=== PATIENT | female | born 1995 | race Two or more races ===

== ENCOUNTER 2018-02-21 11:30 | Outpatient (AMBR) | payer MEDICAID, SELFPAY ==
--- NOTE | 2018-02-13 13:21 | PT.ODAYNRPT ---
PT Outpatient Daily Note Date of Service: February 13, 2018 OP Daily Note Visit Reasons: back Outpatient Physical Therapy Treatment Date: 02/13/18 Subjective: pt reported some soreness from last visit. she felt a little better today. Objective: see flow sheet. Assessment: educated and demonstrated proper lifting mechanics using the box weight. pt attempted a few times until she understood the proper form. added wall squats to help with good posture as she squats. will continue to practice more lifting techniques. pt denied discomfort during and after lumbar traction. Plan: continue POC per PT. Length of Time (minutes) of Treatment: 30 Minutes Office Procedures PT Procedures PT Date of Service: 02/21/18 Therapeutic Exercise 15 minutes: Yes Manual Interactive Media Specialist 15 minutes: Yes PT Procedures PT Date of Service: 02/13/18 Traction Mechanical: Yes Therapeutic Exercise 15 minutes: Yes
--- NOTE | 2018-02-21 12:15 | PT.ODAYNRPT ---
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
--- NOTE | 2018-02-21 12:18 | PTNOTE_ITS ---
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
== END 2018-03-10 23:59 | disposition home or self-care (01) ==
PROVIDERS: PCP Physician Assistant; Referring Provider Physician Assistant; Visit Provider Family Medicine
DX: M54.5 Low back pain (principal)
CPT/HCPCS: 97012; 97110; 97140

== ENCOUNTER 2024-10-02 23:11 | Emergency (ER) | payer MEDICAID, SELFPAY ==
[2024-10-02 23:11] VITALS: BMI 17.4
[2024-10-02 23:27] VITALS: BP 110/70; PULSE 127; RESP 18; TEMP 39.1; O2SAT 97
--- NOTE | 2024-10-02 23:33 | PD.EDURI ---
Upper Respiratory Inf. RME/HPI General Chief Complaint: Dental/Oral/Throat Stated Complaint: Sore throat Time Seen by Provider: 10/02/24 23:32 Arrival date/time: 10/02/24 23:11 28F with no significant PMH presents to ED with several days of sore throat. Patient denies cough. Limitations: no limitations Related Data Previous Rx's ?Medication ?Instructions ?Recorded amoxicillin 875 mg-potassium 1 tab PO BID 7 days #14 tabs 10/03/24 clavulanate 125 mg tablet Allergies Allergy/AdvReac Type Severity Reaction Status Date / Time No Known Allergies Allergy Verified 07/27/22 08:27 Review of Systems Review of Systems Systems Reviewed: All systems reviewed, normal except as documented Constitutional Constitutional: Reports system reviewed and no additional complaints, except as documented, Denies fever(s) and Denies headache(s) ENT Ears, Nose, Mouth, and Throat: Reports as per HPI, Denies disequilibrium, Denies headache(s) and Reports sore throat Cardiovascular Cardiovascular: Reports system reviewed and no additional complaints, except as documented, Denies chest pain and Denies dyspnea Respiratory Respiratory: Reports system reviewed and no additional complaints, except as documented, Denies cough and Denies dyspnea Gastrointestinal Gastrointestinal: Reports system reviewed and no additional complaints, except as documented, Denies abdominal pain, Denies nausea and Denies vomiting Neurologic Neurologic: Reports system reviewed and no additional complaints, except as documented, Denies confusion, Denies disequilibrium and Denies headache(s) Psychiatric Psychiatric: Denies confusion Past Medical History Past Medical History NEUROLOGIC: Positive Migraine; Negative Neurological Disorders or Seizures CARDIAC: Negative Cardiac Disorders, Congestive Heart Failure, Edema or Cellulitis RESPIRATORY: Negative Chronic Obstructive Pulmonary Disease (COPD), Asthma, Tuberculosis or Pulmonary Embolism GASTROINTESTINAL: Positive Gastrointestinal Disorders and Colitis; Negative Hepatitis GENITOURINARY: Negative Genitourinary Disorders or Renal Disease REPRODUCTIVE: Negative Previous Pregnancies MUSCULOSKELETAL: Positive Musculoskeletal Disorders and Fractures (LEFT ELBOW HAD CAST ONLY) ENDOCRINE: Negative Endocrine Disorders, Diabetes Mellitus Type 1 or Diabetes Mellitus Type 2 HEMATOLOGIC: Negative Blood Disorders or Sickle Cell Disease PSYCHO/SOCIAL: Positive Anxiety OTHER HISTORY: Positive Chicken Pox; Negative Hospitalization, Autoimmune Disease, Down Syndrome, Developmental Delay, Shingles, Falls, Blood Transfusions, Blood Transfusion Reaction, Anesthesia Reactions, Chemotherapy, Radiation Therapy, MRSA, Measles, Mumps or Cancer Family History FAMILY HISTORY: Negative Family Psychiatric Problems, Family Respiratory Disorders, Family Cardiac Disorders, Family Gastrointestinal Problems, Family Cancer, Family Surgery or Family Anesthesia Reaction Surgical History SURGICAL: Negative Pacemaker Social History SMOKING STATUS: Never smoker ED Exam General Limitations: Present no limitations General appearance: Present alert and in no apparent distress Head Head exam: Present atraumatic Eye Eye exam: Present normal appearance, PERRL and EOMI ENT ENT exam: Present normal exam, normal oropharynx and mucous membranes moist Neck Neck exam: Present normal inspection, full ROM and trachea midline Chest Chest inspection: Present normal inspection and symmetric chest wall rise Respiratory Respiratory exam: Present normal lung sounds bilaterally Cardiovascular Cardiovascular exam: Present regular rate, normal rhythm and normal heart sounds Abdominal Exam Abdominal exam: Present soft and normal bowel sounds Extremities Exam Extremities exam: Present normal inspection and full ROM Back Exam Back exam: Present normal inspection and full ROM Neurological Exam Neurological exam: Present alert, oriented X3 and CN II-XII intact Psychiatric Psychiatric exam: Present normal affect and normal mood Skin Skin exam: Present warm, dry, intact and normal color Course Quality Measures none Orders Category Date Time Status Strep A Rapid Stat Lab 10/02/24 23:34 Completed 1,000 mg IM w/Lido* 1% Med 10/03/24 00:43 Ordered cefTRIAXone [Rocephin] 1,000 mg Lidocaine 1% 20 ml [Xylocaine 1% 20 ML] 2.1 ml IM X1 Acetaminophen Tab [Tylenol ES Tab] Med 10/02/24 23:32 Discontinued 1,000 mg PO X1 ONE Amoxicillin/Pot Clav 875 [Augmentin 875] Med 10/03/24 00:13 Stop Req 1 tab PO X1 ONE Ketorolac Inj [Toradol Inj] Med 10/02/24 23:32 Discontinued 60 mg IM X1 ONE Vital Signs Vital signs: Vital Signs Temperature 102.4 F H 10/02/24 23:27 Pulse Rate 127 H 10/02/24 23:27 Respiratory Rate 18 10/02/24 23:27 Blood Pressure 110/70 10/02/24 23:27 Pulse Oximetry (%) 97 10/02/24 23:27 Oxygen Delivery Method Room Air 10/02/24 23:27 O2 at 97% on RA and WNLs Upper Respiratory Infection MDM Narrative MDM Narrative:: 28F with no significant PMH presents to ED with several days of sore throat. Patient denies cough. Physical exam reveals red and swollen oropharynx with some exudates on L side. Normal WOB. Patient is febrile, but does not appear toxic. Strep neg. Could be false neg vs viral vs gonococcal. Patient admits she recently had oral intercourse, though with the same partner. She would prefer to have empiric treatment with IM Rocephin, and so given. Patient data External records reviewed:: [facility] previous records Clinical information provided by:: patient Social determinants that could affect healthcare access:: none Patient has the following chronic illnesses:: none How is presenting disease/condition affected by chronic disease/condition?: no chronic disease Evaluation data The following diagnostics were reviewed and interpreted by me:: lab results Lab and/or radiology exams considered but not ordered:: ordered Interpretation Summary: above Medications / Prescriptions Medications or Prescriptions considered but not ordered:: ordered Medication administrations:: Medication Administration History Discontinued Medications Acetaminophen (Acetaminophen 500 Mg Tablet) 1,000 mg PO X1 ONE Stop: 10/02/24 23:33 Last Admin: 10/02/24 23:49 Dose: 1,000 mg Documented By: Amoxicillin/Clavulanate Potassium (Amoxicillin/Pot Clav 875 Tablet) 1 tab PO X1 ONE Stop: 10/03/24 00:14 Ketorolac Tromethamine (Ketorolac Inj 60 Mg/2 Ml Vial) 60 mg IM X1 ONE Stop: 10/02/24 23:33 Last Admin: 10/02/24 23:49 Dose: 60 mg Documented By: above Consultations Consultation(s) initiated? (list below): No Diagnosis Upper Respiratory Differential Diagnosis: upper respiratory infection, croup, otitis media, sinusitis, viral infection, bronchitis, influenza, pharyngitis and other (tonsillitis) Most likely diagnosis given after review of the tests above:: tonsillitis Admission Indicated Admission indicated?: not indicated Admission Request Was there a request for admission?: No Disposition Plan Disposition Plan: Discharge Discharge Attestation Discharge Attestation: The patient and all family members were given an opportunity to ask questions and understood the discharge instructions. Discharge instructions specifically effects, indications for sooner follow up or return to the emergency department, and the expected course of current diagnosis. Patient condition: Stable Discharge Plan Plan Patient Disposition: HOME (Self Care) Disposition Comment: Stable Prescriptions/Referrals Prescriptions/Med Rec: New amoxicillin-pot clavulanate 875-125 mg tablet 1 tab PO BID 7 Days Qty: 14 0RF Problem List Clinical Impression: Tonsillitis Patient/Caregiver Discharge Instructions Education Materials: Tonsillitis in Adults Additional Instructions: Please follow-up with PCP within 24-48 hours and return immediately if symptoms worsen. Ibuprofen/Tylenol can be used simultaneously for greater fever/pain control. Print Language: Stateless Stand Alone Forms: Patient Portal Info Letter PA/SOFTWARE ENGINEER [employer] Supervising Physician PA/ALFREDO Supervising Physician: Dr. Fernandez
[2024-10-02] MEDS: ACETAMINOPHEN 500 MG TABLET 1000 MG PO (23:49)
[2024-10-02] MEDS: KETOROLAC INJ 60 MG/2 ML VIAL IM (23:49)
[2024-10-03 00:08] LABS: Strep A Rapid Negative (Negative)
[2024-10-03 00:39] VITALS: BP 112/67; PULSE 105; RESP 18; TEMP 37.6; O2SAT 99
[2024-10-03] MEDS: cefTRIAXone 1,000 MG, LIDOCAINE 1% 20 ML 2.1 ML IM (01:19)
[2024-10-03 01:27] VITALS: PULSE 88; RESP 18; TEMP 37.1; O2SAT 97
== END 2024-10-03 01:27 | disposition home or self-care (01) ==
LOC: SERX 10-03 01:34
PROVIDERS: Physician Assistant; Emergency Provider Emergency Medicine
DX: J03.90 Acute tonsillitis, unspecified (principal)
CPT/HCPCS: 87651; 96372; 99283; J0696; J1885; J3490; A9270

== ENCOUNTER 2025-02-13 06:22 | Emergency (ER) | payer MEDICAID, SELFPAY ==
[2025-02-13 06:23] VITALS: BMI 24.3
[2025-02-13 06:41] VITALS: BP 95/61; PULSE 79; RESP 16; TEMP 37.1; O2SAT 97
--- NOTE | 2025-02-13 06:48 | EDNOTE_ITS ---
<Statement entered by Darshana Ewing MD - 02/13/25 08:16> As co-signing physician, I was present and available for consult prn. I concur with the plan and care as documented by the midlevel provider. ED Head Injury RME/HPI General Chief complaint: Head Injury Stated complaint: head injury headache Time Seen by Provider: 02/13/25 06:48 Source: patient Arrival date/time: 02/13/25 06:22 Mode of arrival: ambulatory Limitations: no limitations RME / HPI RME / HPI Narrative: 29-year-old female while exercising hit her head with a dumbbell weighing 50 pounds. Patient continued to exercise, felt dizzy and dazed. Did not crumpled to the ground. Did not lose consciousness. Patient tells me she was not able to sleep throughout the night due to a headache. Complaint: head injury, head pain and other (Hits herself with a dumbbell) Onset (ago): hour(s) (Last night) Place: other Loss of Consciousness: no Location of injury: temporal (Right) Severity scale (1-10): 5 Quality: dull Radiation: none Related Data Allergies Allergy/AdvReac Type Severity Reaction Status Date / Time No Known Allergies Allergy Verified 02/13/25 06:28 Review of Systems Constitutional Constitutional: Reports system reviewed and no additional complaints, except as documented Eyes Eyes: Reports system reviewed and no additional complaints, except as documented, Denies dry eyes, Denies exophthalmos and Reports floaters Cardiovascular Cardiovascular: Denies chest pain with activity and Denies claudication ED Exam Narrative Physical exam: There is tenderness to palpation in the area above the right ear. There is no apparent step-off. There is no bleeding or dried blood present. EOMs are intact and the patient has PERRL. Patient is able to touch her index finger to her nose and she is able to tap her heels to her shins. She has full range of motion of her neck. There is no apparent neurofocal deficit with regard to her extremities. General Limitations: Present no limitations General appearance: Present alert and in no apparent distress Head Head exam: Present atraumatic Eye Eye exam: Present normal appearance, PERRL and EOMI ENT ENT exam: Present normal exam, normal oropharynx and mucous membranes moist Neck Neck exam: Present normal inspection, full ROM and trachea midline Extremities Exam Extremities exam: Present normal inspection and full ROM Back Exam Back exam: Present normal inspection and full ROM Neurological Exam Neurological exam: Present alert and oriented X3 Psychiatric Psychiatric exam: Present normal affect and normal mood Skin Skin exam: Present warm, dry, intact and normal color Course Course Course Narrative: Patient will have a CT of her head Quality Measures none Orders Category Date Time Status CT head/brain wo con Stat Exams 02/13/25 06:52 Completed Vital Signs Vital signs: Vital Signs Temperature 98.7 F 02/13/25 06:41 Pulse Rate 79 02/13/25 06:41 Respiratory Rate 16 02/13/25 06:41 Blood Pressure 95/61 02/13/25 06:41 Pulse Oximetry (%) 97 02/13/25 06:41 Oxygen Delivery Method Room Air 02/13/25 06:41 Pulse ox is 97% Head Injury MDM Narrative MDM Narrative:: Patient will be made aware of her negative CT results. She is to follow-up with primary care physician within a week. If she is worse she may return here. Patient data External records reviewed:: Other (specify) Clinical information provided by:: none (NA) Social determinants that could affect healthcare access:: none (NA) Patient has the following chronic illnesses:: NA How is presenting disease/condition affected by chronic disease/condition?: no chronic disease (No chronic disease) Evaluation data The following diagnostics were reviewed and interpreted by me:: radiology exam(s) (CT of the head negative) Lab and/or radiology exams considered but not ordered:: NA Interpretation Summary: NA Medications / Prescriptions Medications or Prescriptions considered but not ordered:: NA Medication administrations:: NA Consultations Consultation(s) initiated? (list below): No Diagnosis Differential diagnosis head injury: concussion without loss of consciousness, epidural hematoma, closed head injury and subarachnoid hematoma Most likely diagnosis given after review of the tests above:: Contusion head Admission Indicated Admission indicated?: not indicated Admission Request Was there a request for admission?: No Admission Attestation Admission request attestation: NA Disposition Plan Disposition Plan: Discharge Discharge Attestation Discharge Attestation: The patient and all family members were given an opportunity to ask questions and understood the discharge instructions. Discharge instructions specifically effects, indications for sooner follow up or return to the emergency department, and the expected course of current diagnosis. Patient condition: Stable Discharge Plan Plan Patient Disposition: HOME (Self Care) Discharge Disposition comment: Patient discharged to home in no apparent distress Patient condition on transfer: Stable Problem List Clinical Impression: Contusion of head Patient/Caregiver Discharge Instructions Discharge Activity: activity as tolerated Education Materials: Bruises (Contusions) Print Language: Portuguese Stand Alone Forms: Malinda Award Info., Patient Portal Info Letter PA/POLICE CRIME SCENE TECHNICIAN Supervising Physician PA/POLICE CRIME SCENE TECHNICIAN Supervising Physician: RUDDY
--- NOTE | 2025-02-13 06:52 | XR_ITS ---
Examination: CT brain head without contrast. 2-D sagittal coronal reconstructions Date and time of exam:February 13, 2025, 0705 hours INDICATIONS: Injury to the head with a dumbbell today, head pain CTDI: vol (mGy):40.5 DLP: (mGycm):1064 Technique: Multiple CT axial sections of the brain have been obtained, 5 mm slice thickness. Contrast has not been administered. 2-D sagittal, coronal reconstructions have been obtained Low dose protocols were performed. One or more of the following dose reduction techniques were used; automated exposure control, adjustment of the mA and/or KV according to patient size, use of iterative reconstruction technique. Findings: No significant ventricular enlargement. Intra-axial or extra-axial hemorrhage density is not seen. No mass effect or midline shift Basal cisterns are not remarkable. Fourth ventricle is midline. Cranial vault intact. Impression: Negative for acute hemorrhage, mass effect or midline shift
== END 2025-02-13 08:10 | disposition home or self-care (01) ==
PROVIDERS: Emergency Provider Physician Assistant; PCP Physician Assistant
DX: S00.93XA Contusion of unspecified part of head, initial encounter (principal); W22.8XXA Striking against or struck by other objects, initial encounter
CPT/HCPCS: 70450; 99283

== ENCOUNTER 2025-05-30 17:21 | Emergency (ER) | payer MEDICAID, SELFPAY ==
[2025-05-30 17:21] VITALS: BMI 24.3
[2025-05-30 17:26] VITALS: BP 111/71; PULSE 73; RESP 16; TEMP 36.8; O2SAT 96
--- NOTE | 2025-05-30 17:49 | XR_ITS ---
Examination: CT abdomen and pelvis without contrast. Coronal 3-D reconstructions. Sagittal 2-D reconstructions. Date and time of exam: May 30, 2025, 1950 hours INDICATIONS: Flank pain abdominal pain nausea beginning 3 days ago COMPARISON: February 10, 2021 CTDI: vol (mGy): 9.14 DLP: (mGycm): 501 Technique: Axial images of the abdomen have been obtained, 3 mm slice thickness Intravenous contrast material has not been administered. Low dose protocols were performed. One or more of the following dose reduction techniques were used; automated exposure control, adjustment of the mA and/or KV according to patient size, use of iterative reconstruction technique. Findings: No liver or splenic lesion No gallstones No pancreatic or adrenal mass No renal or ureteral calculi, no hydronephrosis Aorta normal size Normal appendix No pelvic mass Bladder intact Moderate disc narrowing L5-S1 IMPRESSION: No renal or ureteral calculi, no hydronephrosis Normal appendix No bowel obstruction diverticulitis or free air
--- NOTE | 2025-05-30 17:49 | PD.EDRME ---
Rapid Medical Screening Exam RME Arrival date/time: 05/30/25 17:21 29-year-old female presents to the emergency department today for complaint of left flank pain Chief Complaint: Abdominal Pain Vital signs: Vital Signs Temperature 98.2 F 05/30/25 17:26 Pulse Rate 73 05/30/25 17:26 Respiratory Rate 16 05/30/25 17:26 Blood Pressure 111/71 05/30/25 17:26 Pulse Oximetry (%) 96 05/30/25 17:26 Oxygen Delivery Method Room Air 05/30/25 17:26 Vital signs reviewed by provider: Yes Exam: On exam patient well-appearing does not appear ill or toxic no acute distress patient has left flank pain Clinical Impression: Lab work and imaging obtained
[2025-05-30 18:22] LABS: Basophils # (Auto) 0.0 Thou/mm3 (0.0-0.2); Basophils % (Auto) 1 % (0-2.5); Eosinophils # (Auto) 0.1 Thou/mm3 (0.0-0.5); Eosinophils % (Auto) 1 % (0-10); Hematocrit 40.5 % (36.0-46.0); Hemoglobin 13.3 g/dL (12.0-16.0); Immature Granulocytes Auto 0.02 Thou/mm3 (0.00-0.00); Lymphocytes # (Auto) 2.6 Thou/mm3 (1.0-4.8); Lymphocytes % (Auto) 31 % (10-50); Mean Corpuscular HGB Conc 32.8 g/dl (31.0-37.0); Mean Corpuscular Hemoglobin 30.0 pg (25.0-35.0); Mean Corpuscular Volume 91 fL (80-100); Monocytes # (Auto) 0.5 Thou/mm3 (0.0-0.8); Monocytes % (Auto) 6 % (0-12); Neutrophils # (Auto) 5.1 Thou/mm3 (1.8-7.7); Neutrophils % (Auto) 61 % (37-80); Nucleated Red Blood Cell # 0.00 Thou/mm3 (0.00-0.00); Nucleated Red Blood Cell % 0 /100 WBC (0); Platelet Count 197 Thou/mm3 (140-440); RDW Standard Deviation 46.3 fL (36.4-46.3); Red Blood Count 4.44 Miln/mm3 (4.00-5.20); White Blood Count 8.4 Thou/mm3 (3.6-11.0)
[2025-05-30 18:32] LABS: Alanine Aminotransferase 17 U/L (10-49); Albumin, Serum 5.1 gm/dL (3.5-5.0); Albumin/Globulin Ratio 2.0 (1.2-2.2); Alkaline Phosphatase 46 U/L (46-116); Anion Gap 8 (7-16); Aspartate Amino Transferase 21 U/L (0-34); BUN/Creatinine Ratio 15 Ratio (12-20); Bilirubin,Total 0.7 mg/dL (0.3-1.2); Blood Urea Nitrogen 12 mg/dL (9-23); Calcium 9.6 mg/dL (8.3-10.6); Calcium (Corrected) 9.6 mg/dL (8.5-10.1); Carbon Dioxide 25.8 mMol/L (20.0-31.0); Chloride 107 mMol/L (98-107); Creatinine (Component) 0.8 mg/dL (0.6-1.3); Estimated Creatinine Clearance 103.7 mL/min (>60); Globulin 2.5 gm/dL (2.3-3.5); Glucose 86 mg/dL (74-106); Lipase 36 U/L (12-53); Osmolality,Calculated 279 (275-295); Potassium 3.9 mMol/L (3.4-5.1); Sodium 141 mMol/L (136-145); Total Protein 7.6 gm/dL (5.7-8.2); eGFR > 60 See Note
[2025-05-30 19:05] LABS: Collection Type, Urine Clean Catch
--- NOTE | 2025-05-30 19:05 | PD.EDFMALE ---
ED Female Urogenital RME/HPI General Chief complaint: Abdominal Pain Stated complaint: SHARP L FLANK PAIN Time Seen by Provider: 05/30/25 18:24 Arrival date/time: 05/30/25 17:21 RME / HPI RME / HPI Narrative: 05/30/25 17:21 29-year-old female presents to the emergency department today for complaint of left flank pain DR. CONLEY MAIN ED EVALUATION: Patient presents with sudden onset left flank pain x 3 days ANGLESMITH described as sharp, waxing and waning. Reports urinary frequency and urgency, denies dysuria. No hematuria noted. Nausea without emesis and chills without fever. Also reports ongoing diarrhea with approximately 2-3 episodes per day for approximately 1 week. Denies recent travel, restaurant food exposure, or recent ABX therapy. PMH: Endometriosis, Migraine, Colitis, Anxiety PSH: Lumbar discectomy Allergies: NKDA Social: Negative Exam: On exam patient well-appearing does not appear ill or toxic no acute distress patient has left flank pain Impression: Lab work and imaging obtained Related Data Allergies Allergy/AdvReac Type Severity Reaction Status Date / Time No Known Allergies Allergy Verified 05/30/25 17:23 Review of Systems Review of Systems Systems Reviewed: All systems reviewed, normal except as documented Past Medical History Past Medical History NEUROLOGIC: Positive Migraine GASTROINTESTINAL: Positive Colitis REPRODUCTIVE: Positive Endometriosis MUSCULOSKELETAL: Positive Fractures (LEFT ELBOW HAD CAST ONLY) PSYCHO/SOCIAL: Positive Anxiety OTHER HISTORY: Positive Chicken Pox ED Exam Narrative Physical exam: GEN. APPEARANCE: The patient is alert awake oriented X-3 under no distress, lying down comfortably, does not look ill/toxic. Patient has good eye contact. Patient is cooperative. VITALS: All vitals were reviewed and the pulse ox is 96%, which is normal according to my interpretation HEENT: Normocephalic, atraumatic and nontender. Pupils are equal and reactive. Oral mucosa is moist. NECK: Supple, nontender, no meningismus, no JVD. There is no thyromegaly and no lymphadenopathy. CHEST: Nontender on palpation no deformity and no crepitus. CARDIOVASCULAR: Heart regular rhythm, no murmur or gallop rub or extra beats. LUNGS: Clear to auscultation bilaterally with symmetrical chest rise. No laboring tachypnea or wheezing. No intercostal subcostal retraction. No rales and no rhonchi. ABDOMEN: Soft, flat, marked tenderness to the left flank extending towards the LLQ, no perirtonel findings, rebound tenderness. There are no abnormal masses palpated. No pulsatile masses or bruits. Active and normal bowel sounds. EXTREMITIES: Normal inspection and palpation. No edema. No cyanosis. Patient is able to move all 4 extremities well SKIN: Warm and dry, no rashes noted. MUSCULOSKELETAL: No lumbar or midline bony tenderness. There is no CVA tenderness. No paraspinal muscle spasm or tenderness. NEURO: Cranial nerves II through XII grossly intact. There are no focal neurologic deficits noted. GCS is 15 PSYCHIATRIC: Patient is in normal mood and affect, cooperative. LYMPHATICS: No major lymphadenopathy noted. Course Quality Measures none Orders Category Date Time Status CT abdomen pelvis wo con Stat Exams 05/30/25 17:49 Completed CBC Stat Lab 05/30/25 17:57 Completed Comprehensive Metabolic Panel Stat Lab 05/30/25 17:57 Completed HCG Qualitative,Urine Stat Lab 05/30/25 18:11 Completed Lipase Stat Lab 05/30/25 17:57 Completed UA, C/S IF [Urinalysis, C/S if Indicated] Stat Lab 05/30/25 18:11 Completed Ketorolac Inj [Toradol Inj] Med 05/30/25 19:01 Discontinued 30 mg IVP X1 ONE Morphine* Inj Med 05/30/25 19:02 Discontinued 4 mg IVP X1 ONE Prochlorperazine Inj [Compazine Inj] Med 05/30/25 19:01 Discontinued 5 mg IV X1 ONE Sodium Chloride 0.9% 1000 ml [Ns] 1,000 ml Med 05/30/25 19:01 Discontinued IV 999 mls/hr Vital Signs Vital signs: Vital Signs Temperature 98.2 F 05/30/25 17:26 Pulse Rate 73 05/30/25 17:26 Respiratory Rate 16 05/30/25 17:26 Blood Pressure 111/71 05/30/25 17:26 Pulse Oximetry (%) 96 05/30/25 17:26 Oxygen Delivery Method Room Air 05/30/25 17:26 Urogenital - Female MDM Narrative MDM Narrative:: Scribe Attestation: I, Sandra Fernandez, am scribing for and in the presence of Dr. Vazquez. Provider Notation: Although this document has been carefully reviewed, there may still be some phonetic and other typographical errors. These errors are purely grammatical due to imperfections in the software program and should not be construed in any way to compromise the substance of the patient's medical care during this visit. Patient presents with sudden onset left flank pain x 3 days ANGLESMITH described as sharp, waxing and waning. Reports urinary frequency and urgency, denies dysuria. Please see PE findings. Laboratory markers including CBC and serum chemistries were essentially unremarkable. UA without evidence of infection or hematuria. CT scans obtained were also unremarkable. Patient received low-dose narcotic analgesics and NSAID with [id number] relief. Etiology of flank pain is unclear at this time. Will consider treating for musculoskeletal etiology. Patient data External records reviewed:: [facility] previous records (Reviewed prior ED records from 02/13/25. Patient was seen for Contusion of head.) Clinical information provided by:: patient Social determinants that could affect healthcare access:: mental health (Anxiety) Patient has the following chronic illnesses:: Endometriosis, Migraine, Colitis, Anxiety How is presenting disease/condition affected by chronic disease/condition?: exacerbated by Evaluation data The following diagnostics were reviewed and interpreted by me:: lab results and radiology exam(s) Lab and/or radiology exams considered but not ordered:: None Interpretation Summary: RADIOLOGY Abdomen/Pelvis CT: Findings: No liver or splenic lesion No gallstones No pancreatic or adrenal mass No renal or ureteral calculi, no hydronephrosis Aorta normal size Normal appendix No pelvic mass Bladder intact Moderate disc narrowing L5-S1 IMPRESSION: No renal or ureteral calculi, no hydronephrosis Normal appendix No bowel obstruction diverticulitis or free air Medications / Prescriptions Medications or Prescriptions considered but not ordered:: None Medication administrations:: Medication Administration History Discontinued Medications Sodium Chloride (Ns) 1,000 mls @ 999 mls/hr IV .Q1H1M ONE Stop: 05/30/25 20:01 Last Admin: 05/30/25 20:00 Dose: 999 mls/hr Documented By: KERI Ketorolac Tromethamine (Ketorolac Inj 30 Mg/Ml Vial) 30 mg IVP X1 ONE Stop: 05/30/25 19:02 Last Admin: 05/30/25 20:00 Dose: 30 mg Documented By: KERI Morphine Sulfate (Morphine Sulf Inj 4 Mg/Ml Vial) 4 mg IVP X1 ONE Stop: 05/30/25 19:03 Last Admin: 05/30/25 20:01 Dose: 4 mg Documented By: KERI Prochlorperazine Edisylate (Prochlorperazine Inj 5 Mg/Ml Vial 2 Ml) 5 mg IV X1 ONE; Protocol Stop: 05/30/25 19:02 Last Admin: 05/30/25 20:00 Dose: 5 mg Documented By: KERI See above if any Consultations Consultation(s) initiated? (list below): No Diagnosis Urogenital Female Differential Diagnosis: urinary tract infection, ovarian cyst, ruptured ovarian cyst, cystitis and other (Renal calculi, Pyelonephritis) Most likely diagnosis given after review of the tests above:: Left flank pain of unclear etiology Admission Indicated Admission indicated?: not indicated Explain why admission is indicated or not indicated:: Patient does not meet admission criteria Admission Request Was there a request for admission?: No Disposition Plan Disposition Plan: Discharge Discharge Attestation Discharge Attestation: The patient and all family members were given an opportunity to ask questions and understood the discharge instructions. Discharge instructions specifically effects, indications for sooner follow up or return to the emergency department, and the expected course of current diagnosis. Patient condition: Stable Discharge Plan Plan Patient Disposition: HOME (Self Care) Prescriptions/Referrals Referrals: Norma Storm PA-C [Primary Care Provider] - In 1 week Problem List Clinical Impression: Left flank pain Patient/Caregiver Discharge Instructions Print Language: Tunisian Stand Alone Forms: Malinda Award Info., Patient Portal Info Letter
[2025-05-30 19:11] LABS: Bilirubin,Urine Negative (Negative); Blood,Urine Negative (Negative); Clarity,Urine Clear (Clear/Hazy); Color,Urine Colorless (Lt Yel-Yel); Culture Indicated,Urine Not Indicated; Glucose, Urine Negative (Negative); Ketones,Urine Negative (Negative); Leukocyte Esterase,Urine Negative (Negative); Nitrite,Urine Negative (Negative); PH,Urine 6.0 (5.0-7.0); Protein,Urine Negative (Neg - Trace); RBC,Urine < 1 /hpf (0-3); Specific Gravity,Urine 1.008 (1.001-1.035); Squamous Epithelial Cell,Urine 4 /hpf (0-5); Urobilinogen,Urine Negative mg/dL (0.0-1.0); WBC,Urine 1 /hpf (0-5)
[2025-05-30 19:12] LABS: HCG Qualitative,Urine Negative
[2025-05-30] MEDS: PROCHLORPERAZINE INJ 5 MG/ML VIAL 2 ML IV (20:00)
[2025-05-30] MEDS: SODIUM CHLORIDE 0.9% 1000 ML 1,000 ML 999 ML IV (20:00)
[2025-05-30] MEDS: KETOROLAC INJ 30 MG/ML VIAL IVP (20:00)
[2025-05-30] MEDS: MORPHINE SULF INJ 4 MG/ML VIAL IVP (20:01)
[2025-05-30 21:13] VITALS: BP 122/78; PULSE 78
== END 2025-05-30 21:14 | disposition home or self-care (01) ==
PROVIDERS: Nurse Practitioner Primary Care; Emergency Provider Emergency Medicine; PCP Physician Assistant
DX: R10.A2 Flank pain, left side (principal)
CPT/HCPCS: 36415; 74176; 80053; 81001; 81025; 83690; 85025; 96374; 96375; 99283; J0780; J1885; J2270; J7030